=== PATIENT | female | born 1985 | race Caucasian/White ===

== ENCOUNTER 2021-03-07 08:00 | Outpatient (CLI) | payer MEDICAID | END 2021-03-07 23:59 | disposition home or self-care (01) | LOC: LAB.S 08:00 | PROVIDERS: ATTEND Emergency Medicine | DX: H60.12 Cellulitis of left external ear (principal) | CPT/HCPCS: 87070; 87181; 87205 ==

== ENCOUNTER 2022-06-08 19:59 | Outpatient (CLI) | payer MEDICAID ==
--- NOTE | 2022-06-08 21:50 | Ultrasound Report ---
PROCEDURE: OB Limited INDICATIONS: MALPOSITION OF FETUS OUTSIDE/PRIOR DATING DATA: Last menstrual period (LMP): 10/04/2021. LMP-based estimated date of delivery (ADRIEL): 07/11/2022. First dating scan (date and location): 02/20/2022. Estimated date of delivery (ADRIEL) from first dating scan: 07/09/2022. TECHNIQUE: Real-time scanning was performed of the fetus, with image documentation. COMPARISON: [facility] ultrasound 02/20/2022. FINDINGS: A single living intrauterine gestation is present. Presentation: Vertex Placenta: Placental position is posterior, without previa. Amniotic fluid index: 12.3 cm, within normal limits for gestational age. Largest pocket: 4 cm. heart rate: 135 beats per minutes. Maternal cervical canal: Not well seen but appears closed. Estimated gestational age from initial scan: 35 weeks 4 days. A nuchal cord was noted. IMPRESSION: 1. Single living intrauterine demonstrated in vertex presentation. 2. Nuchal cord noted. Recommend short-term follow-up for further characterization if clinically indic ated. Reviewed by: Jeffery Covarrubias MD on 06/08/2022 9:48 PM PDT Approved by: Jeffery Covarrubias MD on 06/08/2022 9:48 PM PDT Station ID: [id number]
== END 2022-06-08 20:00 | disposition home or self-care (01) ==
LOC: DI 19:59
PROVIDERS: ATTEND Midwife
DX: O26.893 Other specified pregnancy related conditions, third trimester (principal); Z3A.35 35 weeks gestation of pregnancy

== ENCOUNTER 2022-11-05 09:28 | Outpatient (CLI) | payer MEDICAID ==
[2022-11-05 15:01] LABS: BASOPHILS % (AUTO) 0.3 %; EOSINOPHILS # (AUTO) 0.1 10^3/uL (0.0-0.7); EOSINOPHILS % (AUTO) 1.8 %; HCT - HEMATOCRIT 40.7 % (37.0-47.0); HGB - HEMOGLOBIN 12.8 g/dL (12.0-16.0); LYMPHOCYTES # (AUTO) 1.1 10^3/uL (1.5-3.5); LYMPHOCYTES % (AUTO) 17.1 %; MEAN CORPUSCULAR HGB CONC 31.4 g/dL (32.0-36.0); MEAN CORPUSCULAR VOLUME 89.1 fL (81.0-99.0); MEAN PLATELET VOLUME 10.5 fL (7.9-10.8); MONOCYTES # (AUTO) 0.5 10^3/uL (0.0-1.0); MONOCYTES % (AUTO) 7.1 %; NEUTROPHILS # (AUTO) 4.8 10^3/uL (1.5-6.6); NEUTROPHILS % (AUTO) 73.5 %; PLT - PLATELET COUNT 283 10^3/uL (130-450); RED BLOOD COUNT 4.57 10^6/uL (4.20-5.40); RED CELL DISTRIBUTION WIDTH 12.7 % (12.0-15.0); WHITE BLOOD COUNT 6.6 x10^3/uL (4.8-10.8)
[2022-11-05 16:13] LABS: % IRON SATURATION 9 % (20-50); IRON 41 ug/dL (28-170); TOTAL IRON BINDING CAPACITY 452 ug/dL (250-450); TRANSFERRIN 323 mg/dL (192-382)
== END 2022-11-05 09:29 | disposition home or self-care (01) ==
LOC: LAB.S 09:28
PROVIDERS: ATTEND Midwife
DX: Z39.2 Encounter for routine postpartum follow-up (principal); D50.9 Iron deficiency anemia, unspecified
CPT/HCPCS: 36415; 82728; 83540; 84466; 85025